=== PATIENT | female | born 1990 | race Caucasian/White ===

== ENCOUNTER 2017-04-16 09:35 | Inpatient (IN) ==
[2017-04-16] MEDS ORDERED: STADOL IV PRN (09:57)
[2017-04-16] MEDS ORDERED: REGLAN PO ONE (09:57)
[2017-04-16] MEDS ORDERED: PEPCID IV PRN (09:57)
[2017-04-16] MEDS ORDERED: PEPCID PO PRN (09:57)
[2017-04-16] MEDS ORDERED: TYLENOL PO PRN (09:57)
[2017-04-16] MEDS ORDERED: ZOFRAN IV PRN (09:57)
[2017-04-16] MEDS ORDERED: KEFZOL 1 GM/D5W 1 GM/50 ML IVPB IV PRN (09:57)
[2017-04-16] MEDS ORDERED: PITOCIN 30 UNITS/LR 30 UNITS/500 ML IV.SOLN IV SCH (09:57)
[2017-04-16] MEDS ORDERED: PEPCID PO ONE (09:57)
[2017-04-16] MEDS ORDERED: SODIUM CHLORIDE 0.9% INJ SCH (10:00)
[2017-04-16] MEDS: LR 1,000 ML IV SCH ×3 (10:20→14:40)
[2017-04-16 10:42] LABS: UR AMPHETAMINES QUAL NONE DETECTED (NONE DETECT); UR BARBITUATES QUAL NONE DETECTED (NONE DETECT); UR BENZODIAZEPIN QUAL NONE DETECTED (NONE DETECT); UR CANNABINOIDS QUAL NONE DETECTED (NONE DETECT); UR COCAINE QUAL NONE DETECTED (NONE DETECT); UR MDMA QUAL NONE DETECTED (NONE DETECT); UR METHADONE QUAL NONE DETECTED (NONE DETECT); UR METHAMPHETAMINE QUAL NONE DETECTED (NONE DETECT); UR OPIATES QUAL NONE DETECTED (NONE DETECT); UR OXYCODONE QUAL NONE DETECTED (NONE DETECT); UR PCP QUAL NONE DETECTED (NONE DETECT); UR TCA QUAL NONE DETECTED (NONE DETECT)
[2017-04-16 10:44] LABS: BASO% 0.2 % (0.0-0.8); EOS# 0.11 X1000 (0.0-0.7); EOS% 1.3 % (0.0-10.0); HEMATOCRIT 35.2 % (37.0-47.0); HEMOGLOBIN 11.3 g/dL (12.0-16.0); IMM GRAN# 0.03 X1000 (0.0-0.04); IMM GRAN% 0.4 % (0.0-0.5); LYMPH# 1.76 X1000 (1.2-3.4); LYMPH% 20.6 % (20.5-51.1); MANUAL DIFF NEEDED? YES; MCH 27.2 PG (27-31); MCHC 32.1 g/dL (33-37); MCV 84.8 FL (81-99); MONO# 0.49 X1000 (0.11-0.59); MONO% 5.7 % (1.7-9.3); NEUT% 71.8 % (42.2-75.2); PLT 120 X1000 (130-400); RBC 4.15 XMIL (4.2-5.4)
[2017-04-16] MEDS ORDERED: FENTANYL-BUPIV-NS 2 MCG-0.1% 200 ML EPIDURAL SCH (11:00)
[2017-04-16] MEDS ORDERED: MARCAINE 0.25% PF INJ ONE (11:00)
[2017-04-16] MEDS ORDERED: MINERAL OIL TOP ONE (11:14)
[2017-04-16] MEDS ORDERED: XYLOCAINE-MPF 1% INJ ONE ×2 (11:15→14:37)
[2017-04-16 11:18] LABS: LYMPHS 22 % (21-51)
[2017-04-16] MEDS ORDERED: MINERAL OIL PO ONE (14:37)
[2017-04-16] MEDS ORDERED: BOOSTRIX VACCINE IM ONE (18:50)
[2017-04-16] MEDS ORDERED: PITOCIN 30 UNITS/LR 30 UNITS/500 ML IV.SOLN IV ONE (18:50)
[2017-04-16] MEDS ORDERED: PITOCIN 20 UNITS/LR 20 UNITS/1,000 ML IV.SOLN IV SCH (18:50)
[2017-04-16] MEDS ORDERED: M-M-R II VACCINE SUBQ ONE (18:50)
[2017-04-16] MEDS ORDERED: MINERAL OIL PO PRN (18:50)
[2017-04-16] MEDS ORDERED: HYDROXYZINE PO PRN (18:50)
[2017-04-16] MEDS ORDERED: BENADRYL IV PRN (18:50)
[2017-04-16] MEDS ORDERED: PITOCIN IM PRN (18:50)
[2017-04-16] MEDS ORDERED: HYDROXYZINE IM PRN (18:50)
[2017-04-16] MEDS ORDERED: BENADRYL PO PRN (18:50)
[2017-04-16] MEDS ORDERED: PERI MEDS (DERMOPLAST/NUPERCAINAL/TUCKS) MISC PRN (18:50)
[2017-04-16] MEDS ORDERED: AMBIEN PO PRN (18:50)
[2017-04-16] MEDS ORDERED: CYTOTEC PO PRN (18:50)
[2017-04-16] MEDS ORDERED: XYLOCAINE-MPF 1% INJ PRN (18:50)
[2017-04-16] MEDS ORDERED: NORCO-5 PO PRN (18:50)
[2017-04-16] MEDS: PERICOLACE PO SCH (21:03)
[2017-04-16] MEDS: NORCO-10 PO PRN (21:03)
--- NOTE | 2017-04-16 21:36 | OPERATIVE NOTE ---
PROCEDURE DATE: 04/16/2017 PREOPERATIVE DIAGNOSES: 1. Intrauterine at 39 weeks, active labor. 2. History of asthma. POSTDELIVERY DIAGNOSES: 1. Intrauterine at 39 weeks, active labor. 2. History of asthma. 3. Nuchal cord x 1. PHYSICIAN: Dr. Juan Carlos Joya. ANESTHESIA: Epidural by Dr. Sanchez. FINDINGS: Viable male . Do not have weight or Apgars. Cord was 3 vessels. Placenta was spontaneous, intact. There were no lacerations or tears. All counts correct. ESTIMATED BLOOD LOSS: 100 mL. DESCRIPTION OF PROCEDURE: Ms. Samuels is a 26-year-old 3, para 2, at 39 weeks who presented to the office this morning complaining of contractions. She was 5 cm. She was sent upstairs for labor augmentation. She received an epidural and did well. She spontaneously ruptured, became complete, and began pushing. After approximately 20 minutes she crowned at which point with continued pushing, she delivered a viable male , occiput anterior, over an intact perineum. Once head delivered, nuchal cord x 1 was reduced without difficulty and shoulders and the rest of the body delivered without difficulty. The infant was placed on mother's abdomen. Cord was doubly clamped and cut and care of infant was taken over by nursery personnel. Cord blood was obtained and cord was noted to have 3 vessels. Then gentle traction on the cord resulted in delivery of the placenta after approximately 5 minutes. It was inspected and found to be intact, and then discarded. Inspection of the perineum and vagina did not reveal any lacerations or abnormalities. There were no clots or foreign material. Estimated blood loss 100 mL. Expect routine . cc: Juan Carlos Joya MD
[2017-04-17] MEDS: NORCO-10 PO PRN ×6 (00:14→20:49)
[2017-04-17 06:18] LABS: MANUAL DIFF NEEDED? NO
[2017-04-17 06:53] LABS: BASO% 0.2 % (0.0-0.8); EOS# 0.13 X1000 (0.0-0.7); EOS% 1.1 % (0.0-10.0); HEMATOCRIT 30.2 % (37.0-47.0); HEMOGLOBIN 9.5 g/dL (12.0-16.0); IMM GRAN# 0.03 X1000 (0.0-0.04); IMM GRAN% 0.3 % (0.0-0.5); LYMPH% 19.1 % (20.5-51.1); MCH 26.8 PG (27-31); MCHC 31.5 g/dL (33-37); MCV 85.1 FL (81-99); MONO# 0.74 X1000 (0.11-0.59); MONO% 6.4 % (1.7-9.3); NEUT% 72.9 % (42.2-75.2); PLT 112 X1000 (130-400); RBC 3.55 XMIL (4.2-5.4)
[2017-04-17] MEDS: MOTRIN PO PRN ×3 (06:53→23:34)
[2017-04-17] MEDS: PRECARE PO SCH (09:09)
[2017-04-17] MEDS: PERICOLACE PO SCH (19:54)
[2017-04-18] MEDS: NORCO-10 PO PRN ×4 (00:36→11:13)
[2017-04-18 07:28] VITALS: BP 97/53
[2017-04-18] MEDS: PRECARE PO SCH ×2 (07:36→10:22)
[2017-04-18] MEDS: MOTRIN PO PRN (07:36)
== END 2017-04-18 13:45 | disposition home or self-care (01) ==
LOC: P.LD 09:35
PROVIDERS: ADMIT Obstetrics & Gynecology; ATTEND Obstetrics & Gynecology